=== PATIENT | male | born 1945 | race Caucasian/White ===

== ENCOUNTER 2019-04-05 11:00 | Outpatient (CLI) | payer MEDICARE, OTHER, SELFPAY | END 2019-04-05 12:00 | disposition home or self-care (01) | LOC: RAD 09-28 12:11 | PROVIDERS: PCP Internal Medicine; Visit Provider Urology | DX: N50.819 Testicular pain, unspecified (principal) | CPT/HCPCS: 81001 ==

== ENCOUNTER 2019-04-15 11:10 | Day surgery (SDC) | payer MEDICARE, OTHER, SELFPAY ==
[2019-04-14 10:17] VITALS: BMI 27.1
--- NOTE | 2019-04-14 10:20 | ECG_ITS ---
Measurements Intervals Epsom Rate: 65 P: 70 CO: 176 QRS: -72 QRSD: 142 T: 73 QT: 408 QTc: 426 SINUS RHYTHM RIGHT BUNDLE BRANCH BLOCK [120+ ms QRS DURATION, UPRIGHT V1, 40+ ms S IN I/aVL/V4/V5/V6] LEFT ANTERIOR FASCICULAR BLOCK [QRS AXIS <= -45, QR IN I, RS IN II] POSSIBLE SEPTAL MYOCARDIAL INFARCTION [30 ms Q WAVE IN V1/V2], PROBABLY OLD No previous ECG available for comparison Electronically Signed On 04-14-2019 11:37:36 GUIDANCE DIRECTOR by Alvaro Borrego M.D. [email or web address]
--- NOTE | 2019-04-14 10:47 | ANES.PREANE2 ---
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 Proposed Procedure: Operation Date: 04/15/19 13:00 Proposed Procedures p Radical Orchiectomy 15543 N50.89 N50.812(Left) - Robbie Jc MD Familial anesthetic complications: No trouble with anesthesia Social: Social History: Tobacco and No alcohol Packs per day: 1 ppd Exam: Pre-Anes Outpt Exam: alert, oriented x 3, clear to auscultation bilaterally and regular rate & rhythm Airway: Cervical ROM: WNL MP: 2 Additional comments: missing Pulmonary: Pulmonary: None reported CV/HEM: CV/HEM: HTN and PVD Comments: Walks dog all around neighbor, walks up a couple flights of stairs without symptoms, does lots of work in yard : : None reported Hepatic: Hepatic: None reported GI: GI: None reported Metabolic: Metabolic: None reported Musc/skel: Musc/skel: Lower Back Pain Neuropsych: Neuropsych: None reported Anesthetic Plan: ASA status: 2 Anesthesia: General Risk of > 500 ml blood loss (7ml/kg in children): No PFSH Anesthesia PFSH: Social History Smoking and tobacco status: current every day smoker Alcohol intake: current Alcohol intake frequency: few times a month Desire information about alcohol rehabilitation?: No Counseling given: No Marital status: History of recent travel: No Data Anesthesia Cardiac Studies: No Data to Display
[2019-04-15] VITALS (10 sets, daily range): BP systolic 116–153; BP diastolic 59–82; PULSE 62–71; RESP 13–24; TEMP 36.5–36.8; O2SAT 94–100
[2019-04-15] MEDS: sodium chloride 0.9% 1,000 ML 30 ML IV (12:08)
--- NOTE | 2019-04-15 13:22 | W.PM.OPSUD ---
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
--- NOTE | 2019-04-15 14:24 | P.OP_ITS ---
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 No obvious gross abnormality identified grossly. Condition: stable Disposition: PACU Brief History: Mr. Madrigal is a very pleasant 73-year-old white male with long history of exquisite left testicular pain and some history of remote injury. Ultrasound showed what appeared to be an abnormal left testicle with possibly an infiltrative process but physical exam was completely benign other than tenderness. Initially he wanted to try and preserve the testicle but ultimately after contemplating pain relief he elected to proceed with orchiectomy and we decided inguinal approach because of the appearance on ultrasound although low suspicion was low that this would be a neoplastic process. Procedure: After routine preoperative evaluation examination and obtaining of informed consent he was taken to the operating suite on 04/15/2019 where general anesthesia was administered without difficulty after appropriate timeout was performed, SCDs confirmed to be functioning, preoperative antibiotics administered, beta-iraida protocol confirmed. Prepped and draped in usual sterile fashion in supine position pain careful attention to avoiding pressure points. Left side appropriateness was again confirmed. Incision was made in an old inguinal hernia repair incision taken down through skin subcutaneous tissue to the external ring which was opened slightly to expose the cord. The cord was circumferentially developed to the level of the pubic tubercle and then the testicle was introduced into the wound in a retrograde fashion with the gubern aculum divided the electrocautery. Testicle was inspected and no gross pathology was identified. The cord was then dissected free up into the inguinal canal with separation of the cord into 2 bundles and then doubly clamping each bundle and divided with electrocautery. The cord stump was then doubly ligated with each bundle and meticulous hemostasis was confirmed. Nonabsorbable suture was utilized for this purpose. The wound was then copiously irrigated and then closed. 3-0 Vicryl running was utilized for the subcutaneous tissue and then a 4-0 Vicryl subcuticular closure was utilized with skin glue applied. Cosmetic and functional result was good. Sterile dressings applied. Scrotal fluffs applied. Scrotal support utilized. Tolerated procedure well without complications and was awakened in the operating room and returned to recovery room in stable condition. PLANS: 1. Expect discharge from outpatient surgery today 2. Follow-up in 2 weeks for path check and postop check. Can call within 1 week if he has not heard from us regarding pathology report.
--- NOTE | 2019-04-15 14:28 | SUR.PHASEI ---
1427 PATIENT TO PACU AT THIS TIME. RR EVEN AND UNLABORED. ORAL AIRWAY IN PLACE, PLACED ON SIMPLE MASK AT 8L, SPO2 98%.
--- NOTE | 2019-04-15 14:58 | SUR.PHASEI ---
1455 PATIENT TO OPS AT THIS TIME. NO DISTRESS. RR EVEN AND UNLABORED. DENIES PAIN.
== END 2019-04-15 15:35 | disposition home or self-care (01) ==
PROVIDERS: Family Provider Internal Medicine; PCP Internal Medicine; Visit Provider Urology
PROC: (CPT 54520; principal; 2019-04-15 12:45)
DX: N50.812 Left testicular pain (principal); Z79.82 Long term (current) use of aspirin; I10 Essential (primary) hypertension; Z82.49 Family history of ischemic heart disease and other diseases of the circulatory system; Z83.3 Family history of diabetes mellitus; F17.210 Nicotine dependence, cigarettes, uncomplicated
CPT/HCPCS: 54520; 12345; 88304; 93005; J2001; J2405; J2704; J2765; J3010; J7030

== ENCOUNTER → 2019-04-28 10:28 | Outpatient (BNVA) | payer MEDICARE, OTHER, SELFPAY | PROVIDERS: Family Provider Internal Medicine; PCP Internal Medicine; Visit Provider Urology | DX: N50.89 Other specified disorders of the male genital organs (principal); N50.812 Left testicular pain | CPT/HCPCS: 81001 ==

== ENCOUNTER → 2021-10-25 08:02 | Outpatient (BNVA) | payer MEDICARE, SELFPAY | PROVIDERS: Family Provider Internal Medicine; PCP Internal Medicine; Visit Provider Internal Medicine | DX: M35.3 Polymyalgia rheumatica (principal); M10.9 Gout, unspecified; R70.0 Elevated erythrocyte sedimentation rate; Z11.59 Encounter for screening for other viral diseases; Z11.1 Encounter for screening for respiratory tuberculosis | CPT/HCPCS: 72040; 72100; 73120; 80053; 81003; 82550; 82728; 83540; 83735; 84100; 84443; 84550; 85025; 85651; 86140; 86160; 86162; 86235; 86255; 86376; 86480; 86704; 86803; 87340; 99204 ==

== ENCOUNTER → 2021-11-15 08:47 | Outpatient (BNVA) | payer MEDICARE, SELFPAY | PROVIDERS: Family Provider Internal Medicine; PCP Internal Medicine; Visit Provider Internal Medicine | DX: M35.3 Polymyalgia rheumatica (principal) | CPT/HCPCS: 99214 ==

== ENCOUNTER 2022-03-14 06:24 | Outpatient (CLI) | payer MEDICARE, SELFPAY ==
--- NOTE | 2022-03-14 | CT_ITS ---
WS: [id number] LDCT LUNG CANCER SCREENING HISTORY: SCREENING TECHNIQUE: Axial imaging performed from the apices to 1 cm below the costophrenic angles. Coronal and sagittal reformats are submitted with axial MIP series. All CT scans at [facility] use at least one of these dose optimization techniques: automated exposure control; mA and/or kV adjustment per patient size (includes targeted exams where dose is matched to clinical indication); or iterativ e reconstruction. DLP: 82.47 mGy.cm DIvol: Mean CTDIvol: 1.60 (mGy) COMPARISON: None available. Diagnostic quality: Satisfactory Lung Nodules: 5 mm noncalcified nodule RIGHT upper lobe. Nodule is not definitely calcified. No acute additional nodules are identified. No endobronchial lesion. Lungs: Mild chronic emphysema with peripheral interstitial reticular thickening. Heart: Normal size heart. Extensive coronary artery calcifications. Other findings: Moderate atherosclerotic calcified plaque thoracic aorta. No mediastinal or hilar randall nopathy. No adrenal mass. CT/CT lung screening [id number] IMPRESSION: LUNG-RADS: 2-Benign Appearance or Behavior FOLLOW UP: 12 Month: Continue annual screening with LDCT OTHER FINDINGS (S MODIFIER): None.
== END 2022-03-14 06:25 | disposition home or self-care (01) ==
PROVIDERS: Family Provider Internal Medicine; PCP Internal Medicine; Visit Provider Physician Assistant
DX: Z12.2 Encounter for screening for malignant neoplasm of respiratory organs (principal); F17.210 Nicotine dependence, cigarettes, uncomplicated
CPT/HCPCS: 71271

== ENCOUNTER 2023-02-19 10:32 | Outpatient (CLI) | payer MEDICARE, SELFPAY ==
--- NOTE | 2023-02-19 10:36 | USCV_ITS ---
MadrigalDo michaelyle Age: 77 Gender: M : 1945 Exam Date: 02/19/2023 10:50 Ordering Phys: Conor Vallejo DO Technologist: CT Exam Location: [facility] [place] Indication: claudication Risk Factors: Previous Vascular Surgery: RIGHT LEFT BP: 143.0 / 76.00 BP: 140.0/ 81.00 0 0 Waveform Velocity (cm/s) Velocity (cm/s) Waveform Biphasic 101.2 Iliac Prox 147.4 Biphasic Biphasic 138.9 Iliac Mid 150.5 Biphasic Biphasic 152.0 Iliac Distal 131.7 Biphasic Biphasic 114.3 AUTOMATIC CIGAR WRAPPER TENDER 133.3 Triphasic Biphasic 75.0 SFA Prox 82.5 Biphasic Biphasic 267.2 SFA Mid 136.4 Triphasic Biphasic SFA Dist Triphasic 138.3 166.5 Biphasic 35.0 POP 139.4 Biphasic Monophasic 26.4 ASSISTANT REAL ESTATE MANAGER 66.3 Monophasic Monophasic 39.5 DPA 53.8 Monophasic 0.8 DANIELA 0.9 FINDINGS Mild to moderate diffuse plaques in the iliac and femoral common femoral arteries bilaterally. Moderate to heavy diffuse plaques in the right superficial femoral artery Moderate diffuse plaques in the left superficial femoral artery Resting DANIELA of 0.8 on the right and 0.9 on the left Elevated Doppler velocity at the right mid SFA CONCLUSIONS 1. Abnormal resting DANIELA on the right side suggesting mild peripheral artery disease. The elevated velocity at the mid SFA on the right side is suggestive of greater than 60% stenosis 2. Slightly diminished resting DANIELA on the left side he has a history of mild peripheral artery disease. Moderate diffuse plaque in the left superficial femoral artery. Compared to the study from 04/24/2017, there is some improvement in the ABIs bilaterally Consider exercise DANIELA, if clinically indicated, to better evaluate the functional status Dr Artemio Lewis MD [facility] (Electronically Signed) Final Date: 21 February 2023 19:43 S
== END 2023-02-19 10:33 | disposition home or self-care (01) ==
LOC: RAD 10:32
PROVIDERS: Family Provider Internal Medicine; PCP Internal Medicine; Visit Provider Internal Medicine
DX: I73.9 Peripheral vascular disease, unspecified (principal)
CPT/HCPCS: 93925

== ENCOUNTER → 2023-06-05 10:46 | Outpatient (BNVA) | payer MEDICARE, SELFPAY | PROVIDERS: Family Provider Internal Medicine; PCP Internal Medicine; Referring Provider Internal Medicine; Visit Provider Internal Medicine Cardiovascular Disease | DX: R07.9 Chest pain, unspecified (principal); I45.10 Unspecified right bundle-branch block; I44.4 Left anterior fascicular block; I73.9 Peripheral vascular disease, unspecified; R94.31 Abnormal electrocardiogram [ECG] [EKG]; I65.23 Occlusion and stenosis of bilateral carotid arteries; I10 Essential (primary) hypertension; M35.3 Polymyalgia rheumatica; F17.200 Nicotine dependence, unspecified, uncomplicated; I45.2 Bifascicular block | CPT/HCPCS: 93005; 99205 ==

== ENCOUNTER 2023-06-12 10:07 | Outpatient (CLI) | payer MEDICARE, SELFPAY ==
--- NOTE | 2023-06-12 10:21 | USCV_ITS ---
Raymundo Madrigal Age: 77 Gender: M : 1945 Exam Date: 06/12/2023 10:26 Ordering Phys: Artemio Lewis MD ([email or web address]) Technologist: Exam Location: [facility] Indication: cca disease Risk Factors: Previous Vascular Surgery: Right Brachial BP: / Left Brachial BP: / Right Left Velocity (cm/s) Spectral Plaque Velocity (cm/s) Spectral Plaque Syst/Diast Broadening Syst/Diast Broadening 65.90/ 8.90 Prox CCA 50.00 / 7.50 46.50/ 6.30 Mid CCA 38.40 / 5.60 67.20/ 8.90 Hetro Distal CCA 77.00 / 11.40 Hetro 141.60/18.60 Hetro Prox ICA 74.00 / 12.00 Hetro 104.00/11.00 Hetro Mid ICA 60.40 / 7.40 Hetro 77.70/ 7.60 Distal ICA 65.00 / 8.00 173.60 ECA 227.00 2.10 ICA/CCA 0.80 Antegrade Vertebral Antegrade 102.2/ 5.60 cm/s 86.30/ 8.40 cm/s 0 Tri Subclavian Tri 80.00 177.0 0 FINDINGS Moderately heavy dense plaques of the right bifurcation and proximal internal carotid artery Moderate dense irregular plaques of the left bifurcation and proximal to the carotid artery Antegrade flow in the vertebral arteries bilaterally Elevated Doppler velocities in th proximal external carotid arteries bilaterally CONCLUSIONS Moderately heavy dense plaques of the right bifurcation and proximal internal carotid artery with Doppler features suggesting 50 to 69% stenosis Moderate dense irregular plaques at the left bifurcation and proximal internal carotid artery, suggesting less than 50% stenosis Elevated velocities in the proximal external carotid arteries bilaterally, suggesting hemodynamically significant stenosis Dr Artemio Lewis MD [facility] (Electronically Signed) Final Date: 12 Jun 2023 22:43 S
== END 2023-06-12 10:08 | disposition home or self-care (01) ==
LOC: CDL 10:07
PROVIDERS: Family Provider Internal Medicine; PCP Internal Medicine; Visit Provider Internal Medicine Cardiovascular Disease
DX: I65.23 Occlusion and stenosis of bilateral carotid arteries (principal); I65.21 Occlusion and stenosis of right carotid artery; I77.89 Other specified disorders of arteries and arterioles
CPT/HCPCS: 93880

== ENCOUNTER 2025-01-05 06:52 | Outpatient (CLI) | payer MEDICARE, SELFPAY ==
--- NOTE | 2025-01-05 07:07 | USR_ITS ---
PROCEDURE INFORMATION: Exam: US Duplex Right Lower Extremity Arteries Or Arterial Bypass Grafts Exam date and time: 01/05/2025 7:16 AM Age: 79 years old Clinical indication: Condition or disease; Peripheral vascular disease; Additional info: Peripheral vascular dz TECHNIQUE: Imaging protocol: Right Real-time duplex scan of the arteries or arterial bypass grafts of the right lower extremity with 2-D zepeda scale, color Doppler flow and spectral waveform analysis. Images documented and saved. COMPARISON: US scrotum [id number] 01/15/2019 10:41 AM FINDINGS: Right common femoral artery: No occlusion or significant stenosis. Normal waveform. No pseudoaneurysm in the inguinal region. Peak systolic velocity 118 cm/sec. Right superficial femoral artery: No occlusion. Monophasic waveform. Peak systolic velocity 49 cm per segment proximally, 74 cm/sec in the midportion, and 24 cm/sec distally Right popliteal artery: No occlusion. Monophasic waveform. Peak systolic velocity 30 cm/sec. Right calf/foot arteries: No flow detected within the posterior tibial artery. Dorsalis pedis artery is patent with monophasic waveform and peak systolic velocity 39 cm/sec. Soft tissues: No hematoma or collection. Other findings: Right DANIELA 0.68. US/[place] [id number] IMPRESSION: 1. No flow in the right posterior tibial artery, likely occluded. 2. Decreased DANIELA compatible with moderate to severe peripheral arterial disease. 3. Monophasic waveforms extending from the superficial femoral artery through the dorsalis pedis artery, likely related to areas of stenosis.
== END 2025-01-05 06:53 | disposition home or self-care (01) ==
LOC: RAD 06:55
PROVIDERS: Family Provider Internal Medicine; PCP Family Medicine; Visit Provider Family Medicine
DX: I70.202 Unspecified atherosclerosis of native arteries of extremities, left leg (principal)
CPT/HCPCS: 93926

== ENCOUNTER → 2025-01-17 12:52 | Outpatient (BNVA) | payer MEDICARE, SELFPAY | PROVIDERS: Family Provider Internal Medicine; PCP Family Medicine; Referring Provider Family Medicine; Visit Provider Internal Medicine Cardiovascular Disease | DX: I73.9 Peripheral vascular disease, unspecified (principal); Z95.5 Presence of coronary angioplasty implant and graft; F17.200 Nicotine dependence, unspecified, uncomplicated; M79.604 Pain in right leg; M79.605 Pain in left leg | CPT/HCPCS: 99214 ==

== ENCOUNTER → 2025-01-20 06:52 | Outpatient (BNVA) | payer MEDICARE, SELFPAY | PROVIDERS: Family Provider Internal Medicine; PCP Family Medicine; Visit Provider Podiatrist Foot & Ankle Surgery | DX: L60.0 Ingrowing nail (principal); L60.3 Nail dystrophy; L03.031 Cellulitis of right toe | CPT/HCPCS: 11730; 99204; J9999 ==

== ENCOUNTER → 2025-02-02 06:46 | Outpatient (BNVA) | payer MEDICARE, SELFPAY | PROVIDERS: Family Provider Internal Medicine; PCP Family Medicine; Visit Provider Podiatrist Foot & Ankle Surgery | DX: L60.0 Ingrowing nail (principal); L60.3 Nail dystrophy | CPT/HCPCS: 99213 ==